=== PATIENT | female | born 1955 | race Caucasian/White ===

== ENCOUNTER 2018-01-26 00:03 | Emergency (ER) | END 2018-01-26 04:20 | disposition home or self-care (01) ==

== ENCOUNTER 2018-01-29 22:48 | Emergency (ER) | END 2018-01-30 00:42 | disposition home or self-care (01) ==

== ENCOUNTER 2019-05-06 19:24 | Emergency (ER) | payer OTHER ==
[~2019-05-06] VITALS: Ht 165.1 cm; Wt 71.5 kg
[~2019-05-06 19:24] MED LIST: ACET500C5 PO; ACYC800T5 PO; AMI10 PO; CEPH-443 PO; DOCU-144 PO; HYDR-4011 PO; LORA10CA PO; PHEN-538 PO; POLY17PO6 PO; SULF1TAB31 PO
[2019-05-06 19:35] VITALS: Ht 165.1 cm; Wt 71.5 kg
[2019-05-06] MEDS ORDERED: SOD CHLORIDE 0.9% 1,000 ML IV STA (21:18)
[2019-05-06] MEDS ORDERED: ONDANSETRON 4 MG INJ IV STA (21:18)
[2019-05-06] MEDS ORDERED: morphine 2 MG INJ IV STA (21:18)
[2019-05-06] MEDS ORDERED: SOD CHLORIDE 0.9% 100 ML ONE (23:24)
[2019-05-06] MEDS ORDERED: IOHEXOL 300MG/ML 150 ML BTL ONE (23:24)
[2019-05-07 00:17] VITALS: BP 140/86; PULSE 80; RESP 19
== END 2019-05-07 00:17 | disposition home or self-care (01) ==
LOC: E/R 19:24
DX: R10.32 Left lower quadrant pain (principal)
CPT/HCPCS: 36415; 74177; 80053; 81001; 82150; 83690; 84484; 85025; 85610; 85730; 93005; 96374; 96375; 99285; J2270; J2405; J7030; Q9967

== ENCOUNTER 2019-05-08 17:04 | Emergency (ER) | payer OTHER ==
[~2019-05-08] VITALS: Ht 157.5 cm; Wt 78.0 kg
[2019-05-08 17:09] VITALS: BP 152/88; PULSE 88; RESP 18; Ht 157.5 cm; Wt 78.0 kg
[2019-05-08] MEDS ORDERED: ONDANSETRON (ODT) 4 MG TAB ODT STA (17:16)
[2019-05-08] MEDS ORDERED: KETOROLAC 30 MG INJ IM STA (17:19)
[2019-05-08] MEDS ORDERED: HYDROCODONE/APAP (5/325) TAB PO ONE (17:30)
== END 2019-05-08 18:10 | disposition home or self-care (01) ==
LOC: FTE 17:04 → E/R 18:10
DX: B02.9 Zoster without complications (principal)
CPT/HCPCS: 96372; 99284; J1885